=== PATIENT | female | born 2000 | race Caucasian/White ===

== ENCOUNTER 2025-06-20 20:13 | Emergency (ER) | payer MEDICAID ==
[~2025-06-20] VITALS: Ht 149.9 cm; Wt 67.0 kg
[2025-06-20 20:38] VITALS: TEMP 36.6; O2SAT 99
[2025-06-20] MEDS ORDERED: TOPUD MT (21:33)
[2025-06-20] MEDS ORDERED: CEPH500C2 MT (21:33)
[2025-06-20] MEDS ORDERED: MUPI1OIN4 TP (21:33)
[2025-06-20 21:57] VITALS: BP 119/72; PULSE 78; RESP 18; O2SAT 98
== END 2025-06-20 21:58 | disposition home or self-care (01) ==
LOC: ER 20:13
DX: L03.031 Cellulitis of right toe (principal); Z79.899 Other long term (current) drug therapy
CPT/HCPCS: 99283